=== PATIENT | female | born 1955 | race African-American/Black ===

== ENCOUNTER 2018-05-12 07:53 | Inpatient (IN) | payer MEDICAID, OTHER ==
[~2018-05-12] VITALS: Ht 154.9 cm; Wt 44.8 kg
[~2018-05-12 07:53] MED LIST: AMLO5TAB2; ATEN100T; DIVA500T7; HYDR25TA4; PRAV20TA3; PRAVASTATIN
[2018-05-12 09:03] LABS: Basophils # (auto) 0.1 uL; Eosinophils # (auto) 0 uL; Eosinophils % (auto) 0.2 % (0.0-7.0); Hematocrit 37.7 % (36.0-46.0); Hemoglobin 11.4 g/dL (12.2-16.2); Lymphocytes # (auto) 1.2 uL; Lymphocytes % (auto) 18.5 % (10.0-50.0); Mean Corpuscular Hemoglobin 25.7 pg (28.0-32.0); Mean Corpuscular Hgb Conc. 30.4 g/dL (32.0-36.0); Mean Corpuscular Volume 84.6 fL (80.0-100.0); Monocytes # (auto) 0.4 uL; Monocytes % (auto) 5.7 % (0.0-12.0); Neutrophils # (auto) 4.8 uL; Neutrophils % (auto) 74.6 % (37.0-80.0); Nucleated Red Blood Cells % 0.2 %; Platelet Count (auto) 228 10^3/uL (140-450); Red Blood Cells 4.46 10^6/uL (4.0-5.20); White Blood Cell 6.5 10^3/uL (4.4-10.8)
[2018-05-12 09:07] LABS: Alanine Aminotransferase 61 U/L (13-56); Albumin 2.7 g/dL (3.4-5.0); Anion Gap 4 (5-15); Aspartate Aminotransferase 28 U/L (15-37); BUN/Creatinine Ratio 34.1; Blood Urea Nitrogen 59 mg/dL (7-18); Calcium 8.6 mg/dL (8.5-10.1); Carbon Dioxide 30 mmol/L (21-32); Chloride 133 mmol/L (98-107); GFR African American 39 mL/min; GFR Non-African American 32 mL/min; Glucose 133 mg/dL (74-106); Potassium 3.9 mmol/L (3.5-5.1)
[2018-05-12 09:10] LABS: Alkaline Phosphatase 98 U/L (45-117); Bilirubin, Total < 0.1 mg/dL (0.2-1.0); Total Protein 6.9 g/dL (6.4-8.2)
[2018-05-12 09:27] LABS: Sodium 167 mmol/L (136-145)
[2018-05-12] MEDS ORDERED: D5W 5% 1,000 ML IV ONE (12:15)
[2018-05-12] MEDS ORDERED: Jevity 1.2 Cal/Fiber 1 Liter GT SCH (13:15)
[2018-05-12] MEDS ORDERED: cefTRIAXone 1GM/10ml IVPUSH 10 ML IV ONE (13:15)
[2018-05-12] MEDS ORDERED: MORPHINE SULF INJ 2 MG/ML SYRINGE 1ML IV PRN (13:15)
[2018-05-12] MEDS ORDERED: LORazepam 2MG/ML-1ML VIAL IV PRN (13:15)
[2018-05-12] MEDS ORDERED: NITROGLYCERIN 0.4 MG SL TAB SL PRN (13:15)
[2018-05-12] MEDS: D5W 5% 1,000 ML IV SCH ×2 (13:34→23:22)
[2018-05-12] MEDS ORDERED: LORazepam 2MG/ML-1ML VIAL ONE (14:07)
[2018-05-12] MEDS ORDERED: LORazepam 2MG/ML-1ML VIAL IV ONE (14:15)
[2018-05-12 14:24] LABS: Urine Bacteria MOD /hpf (None Seen); Urine Blood 1+ /uL (Negative); Urine Mucus FEW (None Seen); Urine Specific Gravity 1.016 (1.001-1.035); Urine WBC 203 /hpf (0 - 5); Urine WBC Clumps PRESENT /hpf (None Seen)
[2018-05-12] MEDS ORDERED: FOLI1TAB6 GT (19:57)
[2018-05-12] MEDS ORDERED: CARV25TA55 GT (19:57)
[2018-05-12] MEDS ORDERED: SERT-274 GT (19:57)
[2018-05-12] MEDS ORDERED: LISI-646 GT (19:57)
[2018-05-12 21:00] VITALS: BP 162/99
[2018-05-12 22:00] VITALS: BP 162/99
[2018-05-12] MEDS: cloNIDine HCL 0.1 MG TAB GT PRN (23:29)
[2018-05-13 05:06] VITALS: BP 133/82
[2018-05-13 06:52] LABS: Basophils # (auto) 0.1 uL; Eosinophils # (auto) 0 uL; Hematocrit 34.5 % (36.0-46.0); Monocytes # (auto) 0.3 uL; Neutrophils # (auto) 3.3 uL; Nucleated Red Blood Cells % 0.3 %
[2018-05-13 06:56] LABS: Eosinophils % (auto) 0.9 % (0.0-7.0); Hemoglobin 10.7 g/dL (12.2-16.2); Lymphocytes # (auto) 1.7 uL; Lymphocytes % (auto) 31.7 % (10.0-50.0); Mean Corpuscular Hemoglobin 26.3 pg (28.0-32.0); Monocytes % (auto) 5.7 % (0.0-12.0); Neutrophils % (auto) 60.7 % (37.0-80.0); Platelet Count (auto) 170 10^3/uL (140-450); Red Blood Cells 4.06 10^6/uL (4.0-5.20); White Blood Cell 5.5 10^3/uL (4.4-10.8)
[2018-05-13 06:58] LABS: Red Cell Distribution Width 20.8 % (11.8-14.3)
[2018-05-13 07:09] LABS: BUN/Creatinine Ratio 35.5; Calcium 8.6 mg/dL (8.5-10.1)
[2018-05-13] MEDS ORDERED: ATO40T PO (07:11)
[2018-05-13 08:00] VITALS: BP 121/81
[2018-05-13] MEDS: D5W 5% 1,000 ML IV SCH (08:45)
[2018-05-13] MEDS: PANTOPRAZOLE 40 MG/10 ML VIAL IV SCH (10:24)
[2018-05-13] MEDS: cefTRIAXone 1GM/10ml IVPUSH 10 ML IV SCH (10:24)
[2018-05-13 12:00] VITALS: BP 126/94
[2018-05-13 16:00] VITALS: BP 143/92
[2018-05-13] MEDS ORDERED: LORazepam 2MG/ML-1ML VIAL IV PRN (16:00)
[2018-05-13] MEDS: FREE WATER GT SCH (17:55)
[2018-05-13 20:14] VITALS: BP 146/92
[2018-05-13 22:00] VITALS: BP 146/92
[2018-05-13] MEDS: ATORVASTATIN 20 MG TAB PO SCH (22:06)
[2018-05-14] VITALS (7 sets, daily range): BP systolic 138–151; BP diastolic 84–102
[2018-05-14] MEDS: FREE WATER GT SCH ×4 (00:24→18:08)
[2018-05-14] MEDS: D5W 5% 1,000 ML IV SCH ×3 (05:15→15:15)
[2018-05-14 06:25] LABS: Basophils # (auto) 0.1 uL; Basophils % (auto) 1.1 % (0.0-2.0); Eosinophils # (auto) 0.1 uL; Eosinophils % (auto) 1.8 % (0.0-7.0); Lymphocytes # (auto) 2.3 uL; Monocytes # (auto) 0.3 uL; White Blood Cell 5.8 10^3/uL (4.4-10.8)
[2018-05-14 06:28] LABS: Hematocrit 33.4 % (36.0-46.0); Hemoglobin 10.7 g/dL (12.2-16.2); Lymphocytes % (auto) 39.4 % (10.0-50.0); Mean Corpuscular Hemoglobin 26.2 pg (28.0-32.0); Mean Corpuscular Volume 81.9 fL (80.0-100.0); Monocytes % (auto) 4.9 % (0.0-12.0); Neutrophils % (auto) 52.8 % (37.0-80.0); Nucleated Red Blood Cells % 0.5 %; Platelet Count (auto) 171 10^3/uL (140-450); Red Blood Cells 4.08 10^6/uL (4.0-5.20); Red Cell Distribution Width 19.4 % (11.8-14.3)
[2018-05-14 06:42] LABS: BUN/Creatinine Ratio 30.5; Calcium 8.7 mg/dL (8.5-10.1); Magnesium 2.7 mg/dL (1.6-2.6); Potassium 3.4 mmol/L (3.5-5.1)
[2018-05-14] MEDS: PANTOPRAZOLE 40 MG/10 ML VIAL IV SCH (10:34)
[2018-05-14] MEDS: cefTRIAXone 1GM/10ml IVPUSH 10 ML IV SCH (10:34)
[2018-05-14] MEDS: CEPHALEXIN 250 MG/5ml ORAL Susp 200ML BTL GT SCH (22:00)
[2018-05-14] MEDS: ATORVASTATIN 20 MG TAB PO SCH (22:00)
[2018-05-15] MEDS: D5W 5% 1,000 ML IV SCH ×2 (01:15→11:15)
[2018-05-15 05:00] VITALS: BP 189/111
[2018-05-15 05:45] LABS: Basophils # (auto) 0.1 uL; Eosinophils # (auto) 0.1 uL; Lymphocytes # (auto) 1.8 uL; Monocytes # (auto) 0.3 uL; Neutrophils # (auto) 2.5 uL; White Blood Cell 4.7 10^3/uL (4.4-10.8)
[2018-05-15 05:48] LABS: Basophils % (auto) 1.3 % (0.0-2.0); Eosinophils % (auto) 2.3 % (0.0-7.0); Hematocrit 31.9 % (36.0-46.0); Hemoglobin 10.4 g/dL (12.2-16.2); Lymphocytes % (auto) 38.3 % (10.0-50.0); Mean Corpuscular Hemoglobin 26.8 pg (28.0-32.0); Mean Corpuscular Hgb Conc. 32.5 g/dL (32.0-36.0); Mean Corpuscular Volume 82.2 fL (80.0-100.0); Monocytes % (auto) 5.9 % (0.0-12.0); Neutrophils % (auto) 52.2 % (37.0-80.0); Nucleated Red Blood Cells % 0.3 %; Platelet Count (auto) 164 10^3/uL (140-450); Red Blood Cells 3.88 10^6/uL (4.0-5.20)
[2018-05-15 05:59] LABS: BUN/Creatinine Ratio 27.8; Calcium 8.3 mg/dL (8.5-10.1); Magnesium 2.5 mg/dL (1.6-2.6); Potassium 3.5 mmol/L (3.5-5.1)
[2018-05-15] MEDS: CEPHALEXIN 250 MG/5ml ORAL Susp 200ML BTL GT SCH ×3 (06:00→17:57)
[2018-05-15] MEDS: FREE WATER GT SCH ×4 (06:20→17:57)
[2018-05-15] MEDS: cloNIDine HCL 0.1 MG TAB GT PRN (06:21)
[2018-05-15 08:00] VITALS: BP 134/89
[2018-05-15 09:00] VITALS: BP 134/89
[2018-05-15] MEDS: PANTOPRAZOLE 40 MG/10 ML VIAL IV SCH (10:00)
[2018-05-15 12:48] VITALS: BP 136/94
[2018-05-15 17:00] VITALS: BP 136/101
[2018-05-15 17:03] VITALS: BP 136/101
== END 2018-05-15 20:40 | disposition home or self-care (01) | DRG 682 ==
LOC: EDBD 07:53 → ER 07:55 → TELE 07:56 → TELE-CENTR 21:08
PROVIDERS: ADMIT Internal Medicine; ATTEND Internal Medicine Geriatric Medicine
DX: N17.9 Acute kidney failure, unspecified (principal); G93.41 Metabolic encephalopathy; E44.0 Moderate protein-calorie malnutrition; N39.0 Urinary tract infection, site not specified; E87.0 Hyperosmolality and hypernatremia; Z68.1 Body mass index [BMI] 19.9 or less, adult; E86.0 Dehydration; B96.20 Unspecified Escherichia coli [E. coli] as the cause of diseases classified elsewhere; I10 Essential (primary) hypertension; F03.90 Unspecified dementia, unspecified severity, without behavioral disturbance, psychotic disturbance, mood disturbance, and anxiety; I70.0 Atherosclerosis of aorta; F17.200 Nicotine dependence, unspecified, uncomplicated; I69.320 Aphasia following cerebral infarction; Z79.899 Other long term (current) drug therapy; Z82.49 Family history of ischemic heart disease and other diseases of the circulatory system; Z83.3 Family history of diabetes mellitus; Z93.1 Gastrostomy status
CPT/HCPCS: 36415; 51702; 70450; 70551; 71045; 74176; 80048; 80053; 80164; 81001; 82962; 83735; 84443; 84484; 85025; 87081; 87086; 87088; 87186; 92610; 93005; 94761; 95819; 96361; 96374; 96375; 97116; 97163; 97530; C9113; J0696; J7042